=== PATIENT | male | born 1970 | race Caucasian/White ===

== ENCOUNTER → 2022-11-18 | Outpatient (CLI) | payer OTHER, SELFPAY ==
--- NOTE | 2022-11-18 07:08 | MRI_ITS ---
EXAM: MR HEAD WITHOUT AND WITH INTRAVENOUS CONTRAST CLINICAL INDICATION: CHRONIC DAILY HEADACHE TECHNIQUE: Multiplanar and multisequence MR images of the brain were obtained without and with intravenous contrast. This report was created using [employer] report generation technology. CONTRAST: 19ml Clariscan via IV COMPARISON: None. FINDINGS: BRAIN AND EXTRA-AXIAL SPACES: Developmental asymmetry of the lateral ventricles. No communicating or noncommunicating hydrocephalus. Following IV contrast administration, there are no abnormally enhancing lesions intra-axially and extra-axially. No intra- or extra-axial hemorrhage. No evidence of acute infarct. No intracranial mass or mass effect. There is preservation of the bernard/white matter interface. Posterior fossa structures are unremarkable. Basal cisterns are patent. No focal signal abnormalities throughout the brain parenchyma in all pulse sequences. SELLA: Unremarkable. Normal sella turcica, pituitary gland, infundibular stalk, optic chiasm and hypothalamus. AUDITORY SYSTEM: Unremarkable. The internal auditory canals are patent. BONES/JOINTS: Unremarkable. No discrete lytic or blastic abnormalities. SINUSES: Unremarkable as visualized. Clear. MASTOID AIR CELLS: Unremarkable as visualized. Clear. ORBITS: Unremarkable as visualized. Both globes, extraocular muscles, optic nerves and retrobulbar fat appear unremarkable. VASCULATURE: Unremarkable as visualized. Normal flow voids in the major intracranial circulation. MRI/Brain W/WO Contrast IMPRESSION: Normal MRI brain with and without contrast. Electronically Signed: Gildardo Stacy MD at 9:07 EST ,
== END | disposition home or self-care (01) ==
LOC: MRI 07:05
PROVIDERS: Referring Provider Psychiatry & Neurology Neurology; Visit Provider Psychiatry & Neurology Neurology
DX: R51.9 Headache, unspecified (principal)
CPT/HCPCS: 70553; A9575

== ENCOUNTER 2022-12-15 20:13 | Emergency (ER) | payer OTHER, SELFPAY ==
[2022-12-15 20:14] VITALS: BP 131/98; PULSE 98; RESP 16; TEMP 35.9; O2SAT 98
[2022-12-15 20:47] VITALS: BMI 35.2
--- NOTE | 2022-12-15 20:59 | EDS_ITS ---
HPI History of Present Illness Chief Complaint: Headache Detail of Chief Complaint: Headache Informant: patient Narrative Narrative: Patient presents the emergency department chief complaint of headache that started initially years ago. Patient states that he would have a headache every 5 or 6 months and they have become progressively more frequent. Patient states that he saw a neurologist recently and had an MRI of his brain about a month ago but did not get the results back. Patient has a follow-up appointment with neurology on January 07. Patient states that over last 6 days he has had more frequent headaches that he is describes as throbbing throughout his entire head. Patient has had no nausea or vomiting. Over this weekend patient developed subjective fever and a sore throat and some congestion. Patient denies any neck pain. He denies trauma to his head. PFSH PFSH Home Medications amoxicillin 500 mg tablet 500 mg PO TID #60 tabs 12/15/22 [Rx Last Taken Unknown] naproxen 500 mg tablet 500 mg PO BID #14 tabs 12/15/22 [Rx Last Taken Unknown] nirmatrelvir 300 mg (150 mg x2)-ritonavir 100 mg tablet,dose pack(EUA) (Paxlovid) See Rx Instructions PO .COMPLEX #30 tabs 12/15/22 [Rx Last Taken Unknown] Allergy/AdvReac Type Severity Reaction Status Date / Time No Known Allergies Allergy Verified 09/16/14 20:46 Social History Smoking Status: Never smoker ROS ROS ED Review of Systems ROS Unobtainable: other Constitutional Constitutional ED: Reports lethargy; Denies chills, fever(s), sweats or weight loss Eyes Eyes: Denies blurry vision, change in vision or diplopia ENT ENT ED: Reports sore throat; Denies rhinorrhea Cardiovascular Cardiovascular: Denies chest pain, orthopnea or racing heartbeat Respiratory/Chest Respiratory/Chest: Reports cough; Denies dyspnea, dyspnea on exertion, orthopnea or sputum Gastrointestinal Gastrointestinal: Denies abdominal pain, diarrhea, nausea or vomiting Genitourinary Genitourinary ED: Denies dysuria, hematuria or urinary frequency Musculoskeletal Musculoskeletal: Denies arthralgias, back pain, myalgias or neck pain Integumentary Denies abscess, Abrasions or rash Neurologic Neurologic: Reports headache(s); Denies weakness Psychiatric Psychiatric: Denies anxiety, depression or suicidal thoughts Endocrine Endocrinology: Denies polydipsia, polyphagia or polyuria Hematologic/Lymphatic Hematologic/Lymphatic: Denies easy bleeding, easy bruising or lymphadenopathy Allergic/Immunologic Allergic/Immunologic ED: Denies mouth swelling, tongue swelling or urticaria EXAM Physical Exam Const Vital Signs: 12/15/22 20:14 Temperature 96.6 F L Temperature Source Temporal Pulse Rate 98 Respiratory Rate 16 Blood Pressure 131/98 H Blood Pressure Mean 109 Pulse Ox 98 Oxygen Delivery Method Room Air Positive well nourished and well developed General Appearance ED: well developed and NAD HEENT Reports TM's clear and moist mucous membranes HEENT Narrative: Mild pharyngeal erythema normocephalic and atraumatic; Negative for trauma or tenderness Tympanic Membrane ED: Yes TM's clear Eyes PERRL and EOMs intact bilaterally General Eye ED: Negative for pale conjunctiva or scleral icterus Neck no lymphadenopathy, supple and no JVD General: Negative for tenderness Chest Wall inspection of chest normal and palpation of chest normal Chest: Negative for tenderness Resp normal respiratory effort and clear to auscultation bilaterally Effort and Inspection: Negative for respiratory distress or pain with movement Auscultation: Negative for rhonchi, wheezes or diminished lung sounds Cardio regular rate, regular rhythm, S1 normal heart sound, S2 normal heart sound and no murmurs Peripheral Pulses: pulses 2+ throughout GI normal to inspection, nondistended, normoactive bowel sounds, soft to palpation, non-tender, non-distended and no masses Back/Spine no CVA tenderness and no thoracic nor lumbar tenderness Extremity normal to inspection General Extremety ED: Negative for edema General Extremity: Negative for edema Neuro oriented x3, CN's II-XII intact bilaterally, no sensory deficits noted and gait normal Neuro Narrative: Finger-nose and heel santoro testing within normal limits, negative Romberg, negative for drift, fundi benign Sensorium / Orientation: awake, alert, oriented to person, oriented to place and oriented to time Motor Exam: strength 5/5 throughout and strength abnormal Psych mental status grossly normal Skin no rashes or lesions noted and no wounds MDM MDM MDM Narrative Medical decision making narrative: IV line established on arrival. Patient had a CBC with differential showed a elevated white count of 15.9. Hemoglobin 14 and hematocrit 42 point platelets 276. I did do a sed rate given the complaint of headache and this was elevated 51. Patient did have a positive rapid COVID test and negative strep test and negative influenza test. Chemistries were unremarkable. CTA of the head and neck obtained was unremarkable for aneurysm or hemorrhage. There were some nonspecific fine noted in the cervical spine as he had punched-out appearing lesions which may represent bony and homogenous AT associated with osteoporosis or metabolic bone disease however etiology such as multiple myeloma or metastatic disease should be excluded. I did discuss these findings with the patient. Patient was given Toradol 15 mg IV. Given findings of some mild frontal and ethmoid sinusitis and an elevated white count also will treat with antibiotics. Patient would like to also use the oral COVID treatment Paxlovid. Given his symptoms of sore throat and mild cough starting within the last 3 days I feel he is within the timeline for using this medication. Patient will be given referral to primary care physician and he will also follow-up with his neurologist regarding findings on CTA of his cervical spine. He may require further imaging such as MRI and further testing. His exam is not consistent with temporal arteritis as he has no tenderness over the temporal arteries. I suspect the elevated sed rate likely related to COVID infection. Lab Data Attestation: I reviewed the patient's lab results. Labs: Laboratory Results - last 24 hr 12/15/22 12/15/22 21:08 21:08 WBC 15.9 H RBC 4.74 Hgb 14.1 Hct 41.9 MCV 88.4 MCH 29.7 MCHC 33.7 RDW Std Deviation 41.6 RDW Coeff of Ras 12.7 Plt Count 276 MPV 9.6 Immature Gran % (Auto) 0.500 Neut % (Auto) 74.2 H Lymph % (Auto) 11.3 L Mcduffie % (Auto) 12.9 H Eos % (Auto) 0.8 Baso % (Auto) 0.3 Absolute Neuts (auto) 11.8 H Absolute Lymphs (auto) 1.79 Nucleated RBC % 0 Differential Comment SCANNED Diff Path Review May foll ESR 51 H Sodium 139 Potassium 3.8 Chloride 103 Carbon Dioxide 25.0 Anion Gap 11 BUN 13 Creatinine 0.97 Estim Creat Clear Calc 79.48 Est GFR (MDRD) Af Amer 104 Est GFR (MDRD) Non-Af 86 BUN/Creatinine Ratio 13.4 Glucose 119 H Calcium 9.5 Radiography Diagnostic Testing: Clinical Impression(s) from Imaging Studies Head/Neck CTA 12/15/22 21:05 IMPRESSION: Normal CTA Head and neck with contrast. Nascet criteria: . No evidence of stenosis. Mild frontal and ethmoid sinusitis. Multilevel degenerative change cervical spine. Multifocal areas of small low attenuating almost punched out appearing lesions which may represent bony inhomogeneity associated with osteoporosis or metabolic bone disease, however etiologies such as multiple myeloma or metastatic disease should be excluded. Recommend correlation with clinical history. Follow-up MRI of the cervical spine may be helpful for further characterization. Electronically Signed: Gail Boone MD at 22:14 EST , Discharge Plan Triage Chief Complaint: Headache ED Provider: Javon Campuzano Dx/Rx/DC Orders Clinical Impression: COVID-19, Headache, Sinusitis Instructions: Caring for Someone Who Has COVID-19, ED Headache Unspecified, ED Sinusitis (Antibiotic Treatment) Prescriptions: New amoxicillin 500 mg tablet 500 mg PO TID Qty: 60 0RF Paxlovid (EUA) 300 mg (150 mg x 2)-100 mg tablets,dose pack See Rx Instructions .ROUTE .COMPLEX Qty: 30 0RF Rx Instructions: take TWO 150 mg tablets of nirmatrelvir with ONE 100 mg tablet of ritonavir twice daily for 5 days naproxen 500 mg tablet 500 mg PO BID Qty: 14 0RF Primary Care Provider: Care Physician,No Primary Referrals: Suyapa Echeverria, [Med Staff - Active Staff] - 3-5 Days NOT,DEFINED [Non-Staff] - Disposition Disposition: Home, Self Care
--- NOTE | 2022-12-15 21:05 | CT_ITS ---
STUDY: CTA HEAD AND NECK WITH CONTRAST REASON FOR EXAM: Male, 52 years old. Severe headache RADIATION DOSAGE (If Supplied By Facility): CTDIvol = ( 29.80 ) mGy, DLP = ( 1699.87 ) mGycm TECHNIQUE: CT angiography was performed with a multi-detector CT scanner. Data acquisition was obtained from the skull base through the vertex following intravenous administration of IV 100mL [id number]-370. MIP images were reconstructed from the axial data set. Post-processing of the angiographic images was performed, with multiplanar reformation and 3D reconstruction. Individualized dose optimization techniques were used for this CT. COMPARISON: 11.18.2022 MRI brain FINDINGS: Normal bilateral petrous carotid arteries. Normal right cavernous carotid artery with a normal supraclinoid bifurcation. Normal left cavernous carotid artery with a normal supraclinoid bifurcation. Normal right A1 segments of the anterior cerebral artery. Normal left A1 segments of the anterior cerebral artery. Normal intact anterior communicating artery (ACOM). Normal bilateral A2 segments of the anterior cerebral arteries. Normal right M1 and M2 segments of the middle cerebral arteries, with a normal M1 bifurcation. Normal left M1 and M2 segments of the middle cerebral arteries, with a normal M1 bifurcation. There is a persistent origin of the right posterior cerebral artery with absence of the posterior communicating artery (PCOM). Normal left posterior communicating artery (PCOM). There is a diminutive appearance of the visualized right-sided vertebral artery or early bifurcation of the PICA. The vessel is patent. Small caliber basilar artery with a normal basilar bifurcation. The visualized bilateral superior cerebellar (SCA) arteries are normal. Normal bilateral P1, P2 and visualized P3 segments of the posterior cerebral arteries. There is no demonstrated aneurysm of the [place] of [place]. There is stable variant asymmetry of the ventricles. There is no visualized area of low attenuation to suggest acute edema. There is no visualized acute hemorrhage. The noncontrasted portion of the study appears grossly normal. AORTIC ARCH: Normal visualized aortic arch. Normal origins of the brachiocephalic, left common carotid, and left subclavian arteries. RIGHT CAROTID ARTERIES: Normal right common carotid artery (CCA). Normal right common carotid bulb. Normal origin of the right internal carotid (ICA) artery without a hemodynamically significant stenosis. Normal visualized cervical portion of the right internal carotid artery. Normal origin of the right external carotid artery (ECA). LEFT CAROTID ARTERIES: Normal left common carotid artery (CCA). There is trace plaque formation in the left carotid bulb. A mildly bulbous appearance of the left carotid bulb similar to the right. Normal origin of the left internal carotid (ICA) artery without a hemodynamically significant stenosis. Normal visualized cervical portion of the left internal carotid artery. Normal origin of the left external carotid artery (ECA). VERTEBRAL ARTERIES: Normal bilateral vertebral arteries. There is mild ethmoid sinus mucosal thickening. There is minimal frontal sinus mucosal thickening similar to prior study. There is visualized multilevel degenerative change within the cervical spine. There are multifocal low attenuating foci within the cervical spine measuring 6.6 mm at the level of C2 3.1 mm at the level of C3 3.5 mm C4 and at C7 4.6 mm. There is a subtle focus of low attenuation at the level of T1. The bones at the skull base are mildly inhomogeneous. There is multilevel disc space narrowing and facet arthropathy within the cervical spine. At the level of C3-C4 there is robust facet arthropathy with moderate left neural foramina narrowing and mild central stenosis. At C4-C5 there is a large facet with severe right neural foramina narrowing and minimal central stenosis. Image #252 series 4. At C5-C6 there is disc space narrowing broad disc osteophyte mild neural foramina narrowing mild central stenosis. There is a broad disc osteophyte C6-C7 with mild to moderate neural foramina narrowing. There is mild to moderate central stenosis. At C7-T1 there is facet arthropathy mild neural foramina narrowing. Within the sternum and the upper thoracic spine there are the same visualized small cystic appearing lucencies within the bones.. CT/CTA Head AND Neck W/ Contrast IMPRESSION: Normal CTA Head and neck with contrast. Nascet criteria: . No evidence of stenosis. Mild frontal and ethmoid sinusitis. Multilevel degenerative change cervical spine. Multifocal areas of small low attenuating almost punched out appearing lesions which may represent bony inhomogeneity associated with osteoporosis or metabolic bone disease, however etiologies such as multiple myeloma or metastatic disease should be excluded. Recommend correlation with clinical history. Follow-up MRI of the cervical spine may be helpful for further characterization. Electronically Signed: Gail Boone MD at 22:14 EST ,
[2022-12-15] MEDS: 0.9% Normal Saline 1,000 ML 1000 ML IV (21:19)
[2022-12-15 21:26] LABS: Absolute Lymphocyte Count 1.79 X10^3/uL (0.83-4.51); Absolute Neutrophil Count 11.8 X10^3/uL (2.0-7.7); Basophil# 0.05 X10^3/uL; Basophil% 0.3 % (0-1); Eosinophil# 0.13 X10^3/uL; Eosinophils% 0.8 % (0-5); Hematocrit 41.9 % (40-54); Hemoglobin 14.1 g/dL (13.0-16.5); Lymphocyte # 1.79 X10^3/ul (0.83-4.51); Lymphocyte % 11.3 % (19-41); Mean Corp Hgb Conc 33.7 g/dL (32-36); Mean Corpuscular Hgb 29.7 pg (27.0-32.0); Mean Corpuscular Volume 88.4 fL (80-94); Mean Platelet Vol. 9.6 fl (6.2-12.0); Monocyte# 2.04 X10^3/uL; Monocyte% 12.9 % (0-10); NRBC Flagged by Analyzer 0 % (0-5); Neutrophil # 11.76 X10^3/uL (2.7-7.7); Neutrophil % 74.2 % (47-70); POSITIVE DIFFERENTIAL YES; Platelet Count 276 K/mm3 (150-450); RBC Distribution Width CV 12.7 % (11.6-14.6); RBC Distribution Width SD 41.6 fl (35.1-43.9); Red Blood Count 4.74 M/mm3 (4.6-6.2); White Blood Count 15.9 K/mm3 (4.4-11.0)
[2022-12-15 21:41] LABS: Differential Indicated SCAN CRITERIA MET
[2022-12-15 21:53] LABS: Anion Gap 11 (5-15); BUN 13 mg/dL (7-18); BUN/Creat Ratio 13.4 RATIO (10-20); Calcium,Total 9.5 mg/dL (8.5-10.1); Chloride 103 mmol/L (98-107); Creatinine, Serum 0.97 mg/dL (0.70-1.30); EST Glomerular Filtration Rate 86 mL/min (>60); Est Glom Filt Rate - Afr Amer 104 mL/min (>60); Estimated Creatinine Clearance 79.48 ml/min; Glucose 119 mg/dL (74-106); Potassium 3.8 mmol/L (3.5-5.1); Sodium Level 139 mmol/L (136-145)
[2022-12-15 22:16] LABS: Differential Comment SCANNED; Erythrocyte Sedimentation Rate 51 mm/hr (0-20)
[2022-12-15] MEDS: Ketorolac 15 MG/ML Vial IV (22:31)
[2022-12-15 22:52] VITALS: BP 136/87; PULSE 74; RESP 18; O2SAT 100
[2022-12-16 14:54] LABS: Pathologist Review Reviewed
== END 2022-12-15 23:35 | disposition home or self-care (01) ==
PROVIDERS: Emergency Provider Emergency Medicine; Visit Provider Emergency Medicine
DX: U07.1 COVID-19 (principal); J32.2 Chronic ethmoidal sinusitis; J32.1 Chronic frontal sinusitis; Z79.1 Long term (current) use of non-steroidal anti-inflammatories (NSAID)
CPT/HCPCS: 70496; 70498; 80048; 85025; 85652; 87428; 87880; 96361; 96374; 99283; J7030; Q9967; A4216